=== PATIENT | male | born 1970 | race Caucasian/White ===

== ENCOUNTER 2021-12-31 17:21 | Emergency (ER) | payer OTHER ==
[2021-12-31] MEDS ORDERED: Bacitracin Oint 1 GM U/D Packet TOP ONE (17:58)
[2021-12-31] MEDS ORDERED: Lidocaine 1% 5 ML VIAL INJECT ONE (17:58)
== END 2021-12-31 19:12 | disposition home or self-care (01) ==
LOC: JP.ED 17:21
DX: S51.841A Puncture wound with foreign body of right forearm, initial encounter (principal); W45.8XXA Other foreign body or object entering through skin, initial encounter
CPT/HCPCS: 99283